=== PATIENT | female | born 1995 | race African-American/Black ===

== ENCOUNTER 2024-01-25 15:19 | Emergency (ER) | payer MEDICAID, OTHER ==
[~2024-01-25] VITALS: Ht 188 cm; Wt 127.0 kg
[2024-01-25 15:43] VITALS: BP 150/94; RESP 18; O2SAT 99
[2024-01-25 15:44] VITALS: PULSE 88; O2SAT 99
[2024-01-25 18:45] VITALS: TEMP 98.5
[2024-01-25] MEDS: ACETAMINOPHEN 500MG TABLET PO ONE (18:45)
== END 2024-01-25 19:17 | disposition home or self-care (01) ==
LOC: ER 15:19
DX: S40.021A Contusion of right upper arm, initial encounter (principal); Z90.49 Acquired absence of other specified parts of digestive tract; X58.XXXA Exposure to other specified factors, initial encounter; Y93.89 Activity, other specified; Y92.89 Other specified places as the place of occurrence of the external cause; Y99.8 Other external cause status
CPT/HCPCS: 73030; 73070; 99284